=== PATIENT | female | born 1955 | race African-American/Black ===

== ENCOUNTER 2022-05-23 20:34 | Emergency (ER) | payer MEDICARE, SELFPAY ==
--- NOTE | ~2022-05-23 | XR_ITS ---
EXAMINATION: XR chest 2V Exam Date/Time: 05/23/2022 21:37 CAMPAIGN FUNDRAISER HISTORY: COUGH, CHEST PAIN, SOB, AND SICK FOR 1 WEEK Comparison: None available. RESULT: Lines, tubes, and devices: None. Lungs and pleura: Reticular nodular opacities with cuffing, mid and lower lung reticulonodular opaci ties. Cardiomediastinal silhouette: Stable. Other: No acute osseous or upper abdominal finding. IMPRESSION: Pulmonary opacities may represent bronchiolitis, as can be seen with atypical infection, asthma, aspi ration, and small airways disease. Reviewed, dictated and finalized at location K. AIGN FUNDRAISER IMPRESSION: Pulmonary opacities may represent bronchiolitis, as can be seen with atypical i nfection, asthma, aspiration, and small airways disease.
[2022-05-23 20:36] VITALS: BP 130/81; PULSE 96; RESP 22; TEMP 37.7; O2SAT 96
[2022-05-23 21:31] LABS: Influenza A QL RT-PCR Negative (Negative); Influenza B QL RT-PCR Negative (Negative); RSV RNA, RT-PCR Negative (Negative); SARS-CoV-2 RNA PCR Negative
--- NOTE | 2022-05-23 22:35 | ED.URI ---
HPI - URI/Sore Throat General Chief Complaint: Upper Respiratory Infection Stated Complaint: really bad cold Time Seen by Provider: 05/23/22 21:18 History of Present Illness HPI Narrative: 66-year-old female presents to the emergency room for evaluation of a really bad cold . Patient states that she has had a productive and painful cough for 1 week, sinus congestion postnasal drip chest tightness and wheezing. Patient endorses a 1 pack/day smoking history. Also reports intermittent fever. Has taken NyQuil on 1 occasion with no relief of symptoms. Related Data Allergies Allergy/AdvReac Type Severity Reaction Status Date / Time No Known Allergies Allergy Verified 05/23/22 22:33 Review of Systems Review of Systems: CONSTITUTIONAL: Denies fever, chills, or sweats. EYES: Denies visual changes, redness, or discharge. ENT: Reports sinus congestion CARDIOVASCULAR: Denies chest pain, palpitations, or edema. RESPIRATORY: Reports cough or dyspnea. GASTROINTESTINAL: Denies abdominal pain, nausea, vomiting, or diarrhea. GENITOURINARY: Denies dysuria or hematuria. SKIN: Denies rash or itching. MUSCULOSKELETAL: Denies back pain, joint pain, or myalgia. NEUROLOGIC: Denies headache, numbness, dizziness, or weakness. PSYCHIATRIC: Denies anxiety or depression. Exam Narrative: GENERAL: Ill-appearing HEAD: Normocephalic, atraumatic. EYES: Conjunctivae normal, PERRLA and EOMI. ENT: External nose normal, Nares clear, no rhinorrhea or epistaxis. Mucous membranes moist. Oropharynx without tonsillar hypertrophy exudate or other lesions. External ears normal, bilateral TMs normal bilaterally NECK: Supple. No adenopathy or masses. CHEST: No respiratory distress. Rhonchi throughout HEART: Regular rate and rhythm. No murmur heard. Normal peripheral pulses. EXTREMITIES: Normal range of motion. No edema. No clubbing or cyanosis SKIN: Warm, dry, no rash. No noted wounds NEURO: No focal deficits. Alert and oriented x3. MAEW. CN's II-XI intact bilaterally, normal gait PSYCH: Cooperative. Normal mood and affect. Course Vital Signs Vital signs: Vital Signs Temperature 37.7 C H 05/23/22 20:36 Pulse Rate 96 05/23/22 20:36 Respiratory Rate 22 H 05/23/22 20:36 Blood Pressure 130/81 05/23/22 20:36 Pulse Oximetry 96 05/23/22 20:36 Oxygen Delivery Room Air 05/23/22 20:36 Temperature 37.7 C H 05/23/22 20:36 Pulse Rate 96 05/23/22 20:36 Respiratory Rate 22 H 05/23/22 20:36 Blood Pressure 130/81 05/23/22 20:36 Pulse Oximetry 96 05/23/22 20:36 Oxygen Delivery Room Air 05/23/22 22:21 MDM - URI/Sore Throat Lab Data Labs: Lab Results 05/23/22 Range/Units 20:43 Influenza A (RT-PCR) Negative (Negative) Influenza B (RT-PCR) Negative (Negative) RSV (RT-PCR) Negative (Negative) SARS-CoV-2 RNA (RT-PCR) Negative Discharge Plan Discharge Clinical Impression: Pneumonia Patient Disposition: Home, Self-Care Condition: Stable Instructions: Antibiotic Form, Pneumonia (ED) Prescriptions: New doxycycline monohydrate 100 mg capsule 100 mg PO BID 10 Days Qty: 20 0RF codeine-guaifenesin 10-100 mg/5 mL liquid 5 ml PO Q6H PRN (Reason: cough) Qty: 120 0RF albuterol sulfate [Ventolin HFA] 90 mcg/actuation HFA aerosol inhaler 1 inh inhalation QID Qty: 6.7 0RF Follow-up/Referrals: PHYSICIAN NOT ON STAFF,NONSTAFF [Primary Care Provider] -
[2022-05-23] MEDS: ACETAMINOPHEN 500 MG TABLET 1000 MG PO (22:51)
[2022-05-23] MEDS: IPRATROPIUM BR 0.02% INH SOLN 0.5 MG/2.5 ML VIAL INHALATION (23:51)
[2022-05-23] MEDS: ALBUTEROL SULFATE NEB 2.5 MG/3 ML INH INHALATION (23:51)
[2022-05-23 23:53] VITALS: PULSE 87; RESP 18
== END 2022-05-23 23:56 | disposition home or self-care (01) ==
PROVIDERS: Emergency Medicine; Emergency Provider Nurse Practitioner Family
DX: J18.9 Pneumonia, unspecified organism (principal); Z20.822 Contact with and (suspected) exposure to COVID-19
CPT/HCPCS: 71046; 87637; 94640; 99283; A9270

== ENCOUNTER 2022-06-12 16:21 | Emergency (ER) | payer MEDICARE, SELFPAY ==
--- NOTE | ~2022-06-12 | XR_ITS ---
EXAMINATION: XR chest 2V Exam Date/Time: 06/12/2022 17:09 BOTTOM BUFFER HISTORY: cough/ CHEST CONGESTION/ MIDSTERNAL CP X 3 DAYS Comparison: 05/23/2022. RESULT: Lines, tubes, and devices: None. Lungs and pleura: Persistent diffuse reticulonodular opacities and cuffing. Cardiomediastinal silhouette: Stable. Other: No acute osseous or upper abdominal finding. IMPRESSION: Stable pulmonary opacities may represent chronic or recurrent bronchiolitis, as can be seen with atyp ical infection, asthma, aspiration, and small airways disease. Reviewed, dictated and finalized at location K. OM BUFFER IMPRESSION: Stable pulmonary opacities may represent chronic or recurrent bronchiolitis, as can be seen with atypical infection, asthma, aspiration, and small airways dis ease.
[2022-06-12 16:23] VITALS: BP 132/95; PULSE 84; RESP 18; TEMP 36.6; O2SAT 98
[2022-06-12 17:20] LABS: Influenza A QL RT-PCR Positive (Negative); Influenza B QL RT-PCR Negative (Negative); RSV RNA, RT-PCR Negative (Negative); SARS-CoV-2 RNA PCR Negative
--- NOTE | 2022-06-12 17:56 | ED.GENADULT ---
HPI - General Adult General Chief complaint: Upper Respiratory Infection Stated complaint: pneumonia getting worse Time Seen by Provider: 06/12/22 16:47 History of Present Illness HPI narrative: Patient is a 66-year-old female here for evaluation of fatigue, cough, body aches for the past 3 days. Patient was treated for pneumonia 2 weeks ago. Her symptoms improved with antibiotics but returned 3 days ago. Has been attempting ibuprofen without relief of her symptoms. Denies productive cough. Positive sick contacts. She received her COVID vaccinations, her flu shot this year. No chest pain, leg swelling, syncope. She is not immunocompromised. Related Data Allergies Allergy/AdvReac Type Severity Reaction Status Date / Time No Known Allergies Allergy Verified 05/23/22 22:33 Review of Systems Review of Systems: Gen: Denies fevers or chills Eyes: Denies eye pain or visual change ENT: Reports congestion Respiratory: Reports cough. Denies shortness of breath CV: Denies chest pain or palpitations GI: Denies abdominal pain nausea, emesis or diarrhea : denies burning, urgency, frequency or hematuria Musculoskeletal: Denies back pain or muscle pain Neuro: Denies numbness, tingling, weakness or focal weakness Skin: Denies rash Except as documented, all other systems reviewed and negative Exam Narrative: APPEARANCE: Well appearing, no pain in distress, well-nourished. Head: Normocephalic and atraumatic. EYES: PERRLA/EOMI, conjunctivae clear NOSE: No nasal drainage EARS: External ear normal in appearance THROAT: Oropharynx is clear. Mucous membranes are moist. NECK: Supple. No adenopathy, no masses. RESPIRATORY: Airway patent, respirations nonlabored. Clear to auscultation bilaterally, no rales, rhonchi, wheezing. CARDIOVASCULAR: Regular rate and rhythm without murmurs, rubs, or gallops. ABDOMINAL: Normoactive bowel sounds. Soft, nontender, nondistended. No rebound tenderness or guarding. MUSCULOSKELETAL: Extremities are warm and well-perfused. Moves all extremities well. No edema. NEURO: Normal speech. No focal neurologic deficits. SKIN: Skin is warm and dry. No rashes. PSYCHIATRIC: Normal affect/mood. Course Vital Signs Vital signs: Vital Signs Temperature 97.9 F 06/12/22 16:23 Pulse Rate 84 06/12/22 16:23 Respiratory Rate 18 06/12/22 16:23 Blood Pressure 132/95 H 06/12/22 16:23 Pulse Oximetry 98 06/12/22 16:23 Oxygen Delivery Room Air 06/12/22 16:23 Temperature 97.9 F 06/12/22 16:23 Pulse Rate 85 06/12/22 18:11 Respiratory Rate 20 06/12/22 18:11 Blood Pressure 147/74 H 06/12/22 18:11 Pulse Oximetry 96 06/12/22 18:11 Oxygen Delivery Room Air 06/12/22 16:23 Medical Decision Making MDM Narrative Medical decision making narrative: Patient is a 66-year-old female here for evaluation of body aches, cough and congestion for the past 3 days. Patient is nontoxic-appearing and has normal vital signs, her heart and lungs are clear to auscultation. Her flu a test is positive which likely explains her symptoms. Her chest x-ray is unchanged from previous. Patient was ambulated throughout the ED and did not desaturate. Shared decision-making was used with patient, who agrees with plan for outpatient antivirals and close PCP follow-up. Discussed return precautions and she voiced understanding. Vital Signs Vital Signs: Vital Signs Temperature 97.9 F 06/12/22 16:23 Pulse Rate 84 06/12/22 16:23 Respiratory Rate 18 06/12/22 16:23 Blood Pressure 132/95 H 06/12/22 16:23 Pulse Oximetry 98 06/12/22 16:23 Oxygen Delivery Room Air 06/12/22 16:23 Temperature 97.9 F 06/12/22 16:23 Pulse Rate 85 06/12/22 18:11 Respiratory Rate 20 06/12/22 18:11 Blood Pressure 147/74 H 06/12/22 18:11 Pulse Oximetry 96 06/12/22 18:11 Oxygen Delivery Room Air 06/12/22 16:23 Lab Data Labs: Lab Results 06/12/22 Range/Units 16:38 Influenza A (RT-PCR)
[2022-06-12] MEDS: ACETAMINOPHEN 325 MG TABLET 650 MG PO (18:00)
[2022-06-12 18:11] VITALS: BP 147/74; PULSE 85; RESP 20; O2SAT 96
== END 2022-06-12 18:11 | disposition home or self-care (01) ==
PROVIDERS: Nurse Practitioner Family; Emergency Provider Emergency Medicine
DX: J10.1 Influenza due to other identified influenza virus with other respiratory manifestations (principal); Z20.822 Contact with and (suspected) exposure to COVID-19
CPT/HCPCS: 71046; 87637; 99283; A9270